=== PATIENT | male | born 1945 | race Caucasian/White ===

== ENCOUNTER 2017-08-20 10:29 | Day surgery (SDC) | payer OTHER ==
[~2017-08-20 10:29] MED LIST: CEFAZOLIN 1 GM INJ; DEXAMETHASONE 4 MG/ML 1 ML INJ; EPHEDrine SULFATE 50 MG/5 ML SYG; LIDOCAINE 2% (SDV) 5 ML INJ; PROPOFOL 200 MG INJ; ROCURONIUM 50 MG INJ
[2017-08-20 11:14] LABS: ADD MAN DIFF? NO
[2017-08-20 11:25] LABS: WHITE BLOOD COUNT 7.3 10^3/ul (4.8-10.8)
[2017-08-20 11:25] LABS: BASOPHILS % 0.5 % (0.0-2.0); EOSINOPHILS # 0.1 10^3/ul (0.0-0.5); EOSINOPHILS % 0.7 % (0.0-7.0); HEMATOCRIT 43.3 % (42.0-52.0); HEMOGLOBIN 14.8 g/dl (14.0-18.0); LYMPHOCYTES # 1.6 10^3/ul (0.8-2.9); LYMPHOCYTES % 22.4 % (15.0-51.0); MEAN CORPUSCULAR HEMOGLOBIN 30.3 pg (29.0-33.0); MEAN CORPUSCULAR HGB CONC 34.2 g/dl (32.0-37.0); MEAN CORPUSCULAR VOLUME 88.5 fl (82.0-101.0); MEAN PLATELET VOLUME 10.1 fl (7.4-10.4); MONOCYTE # 0.6 10^3/ul (0.3-0.9); MONOCYTES % 7.5 % (0.0-11.0); NEUTROPHILS % 68.2 % (39.0-77.0); PLATELET COUNT 162 10^3/UL (140-415); RED BLOOD COUNT 4.89 10^6/ul (4.70-6.10); RED CELL DISTRIBUTION WIDTH 14.1 % (11.5-14.5)
[2017-08-20 11:43] LABS: ALANINE AMINOTRANSFERASE 29 IU/L (13-69); ALBUMIN 4.2 g/dl (3.3-4.9); ALBUMIN/GLOBULIN RATIO 1.44; ALKALINE PHOSPHATASE 60 IU/L (42-121); ANION GAP 12 (8-16); ASPARTATE AMINO TRANSFERASE 15 IU/L (15-46); BILIRUBIN,INDIRECT 0.5 mg/dl (0-1.1); BILIRUBIN,TOTAL 0.5 mg/dl (0.2-1.3); CARBON DIOXIDE 28 mmol/L (21-31); CHLORIDE 104 mmol/L (97-110); GLUCOSE 181 mg/dl (70-220); PROTIME 13.3 Sec (11.9-14.9); TOTAL PROTEIN 7.1 g/dl (6.1-8.1)
[2017-08-20 11:44] LABS: BLOOD UREA NITROGEN 24 mg/dl (7-20); CALCIUM 9.5 mg/dl (8.4-10.2); CREATININE 0.82 mg/dl (0.61-1.24); PARTIAL THROMBOPLASTIN TIME 28.4 Sec (25.0-35.0); POTASSIUM 4.5 mmol/L (3.5-5.1); SODIUM 139 mmol/L (135-144)
[2017-08-20] MEDS ORDERED: FENTAnyl 50 MCG/ML VIAL ×2 (12:00→14:20)
[2017-08-20] MEDS ORDERED: SOD CHLORIDE 0.9% 1,000 ML IV (12:30)
[2017-08-20] MEDS ORDERED: CEFAZOLIN 2 GM/50 ML (PMX) 50 ML IVPB (12:30)
[2017-08-20] MEDS ORDERED: DEXAMETHASONE 4 MG/ML 1 ML INJ (13:54)
[2017-08-20] MEDS ORDERED: ONDANSETRON 4 MG INJ (13:55)
[2017-08-20] MEDS ORDERED: LABETALOL HCL 20MG INJ (14:27)
[2017-08-20] MEDS ORDERED: OXYCODONE/ACETAMINOPHEN (5/325) TAB PO (14:30)
[2017-08-20] MEDS ORDERED: LABETALOL HCL 20MG INJ IV (14:30)
[2017-08-20] MEDS ORDERED: HYDROmorphONE 1 MG/5 ML IV SYRINGE IV ×3 (14:30)
[2017-08-20] MEDS ORDERED: SUGAMMADEX SODIUM 200 MG/2 ML VIAL IV (14:34)
[2017-08-20] MEDS: POLYMYXIN/BACITRACIN 1L IRRIG (14:53)
[2017-08-20] MEDS: BUPIVACAINE 0.5%/EPI (SDV) 30 ML INJ (14:53)
[2017-08-20] MEDS: MEPERIDINE 25 MG INJ IV (15:34)
[2017-08-20] MEDS: ONDANSETRON 4 MG INJ IV (15:47)
[2017-08-20] MEDS: OXYCODONE/ACETAMINOPHEN (5/325) TAB PO (15:47)
== END 2017-08-20 17:05 | disposition home or self-care (01) ==
LOC: SDS 10:29
DX: K40.30 Unilateral inguinal hernia, with obstruction, without gangrene, not specified as recurrent (principal); E11.9 Type 2 diabetes mellitus without complications; E78.5 Hyperlipidemia, unspecified; I10 Essential (primary) hypertension; N40.0 Benign prostatic hyperplasia without lower urinary tract symptoms
CPT/HCPCS: 49507; 71045; 80053; 82962; 85025; 85610; 85730; 88302; 93005